=== PATIENT | female | born 2000 | race Caucasian/White ===

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

== ENCOUNTER 2022-12-17 19:38 | Emergency (ER) | payer OTHER ==
[~2022-12-17] VITALS: Ht 154.9 cm; Wt 52.2 kg
[~2022-12-17 19:38] MED LIST: ACET-10509 PO; LOPE1TAB14 PO; ONDA-188 PO
[2022-12-17 19:50] VITALS: BP 114/68; PULSE 98; RESP 19; TEMP 98.3; O2SAT 95
[2022-12-17 20:47] LABS: APPEARANCE,URINE CLEAR (CLEAR); BILIRUBIN,URINE NEGATIVE (NEGATIVE); BLOOD, URINE TRACE-I (NEGATIVE); COLOR,URINE YELLOW (YELLOW); LEUKOCYTE ESTERASE ,URINE TRACE (NEGATIVE); NITRITE, URINE NEGATIVE (NEGATIVE); PROTEIN,URINE TRACE (NEGATIVE); UGLUCOSE NEGATIVE (NEGATIVE); UROBILINOGEN,URINE 0.2 EU/dL (0.2 - 1)
[2022-12-17 20:53] LABS: BACTERIA,URINE 10-30 (MOD) /HPF (None Seen); SQUAMOUS EPITHELIAL CELL,UR 4-10 (MOD) /LPF (0-3 (FEW)); WBC,URINE 0-5 /HPF (0-5)
[2022-12-17 21:06] LABS: FLU A ANTIGEN negative (NEGATIVE); FLU B ANTIGEN NEGATIVE (NEGATIVE)
[2022-12-17] MEDS ORDERED: KETOROLAC 30 MG/ML VIAL IM ONE (21:10)
[2022-12-17] MEDS ORDERED: ONDANSETRON 4 MG ODT PO ONE (21:10)
[2022-12-17] MEDS ORDERED: CEPH-588 PO (22:07)
[2022-12-17] MEDS ORDERED: IBUP-1842 PO (22:07)
[2022-12-17] MEDS ORDERED: ONDA-188 PO (22:07)
[2022-12-17 22:20] VITALS: BP 114/68; PULSE 98; RESP 19; TEMP 98.3; O2SAT 95
== END 2022-12-17 22:20 | disposition home or self-care (01) ==
LOC: MED 19:38
DX: B34.9 Viral infection, unspecified (principal); M79.18 Myalgia, other site; Z20.822 Contact with and (suspected) exposure to COVID-19; Z79.899 Other long term (current) drug therapy; Z79.1 Long term (current) use of non-steroidal anti-inflammatories (NSAID); Z79.2 Long term (current) use of antibiotics
CPT/HCPCS: 81001; 81025; 87086; 87426; 87804; 96372; 99283; J1885; Q0162